=== PATIENT | male | born 2000 | race Caucasian/White ===

== ENCOUNTER 2022-04-09 19:13 | Emergency (ER) | payer BC, MEDICAID, SELFPAY ==
[2022-04-09 19:13] VITALS: BP 129/88; PULSE 100; RESP 18; TEMP 36.7; O2SAT 96
--- NOTE | 2022-04-09 19:20 | ED.NAVMDI ---
HPI - Nausea/Vomiting/Diarrhea General Chief complaint: Nausea/Vomiting/Diarrhea Stated complaint: Vomiting Time Seen by Provider: 04/09/22 19:20 Source: patient Mode of arrival: ambulatory History of Present Illness HPI Narrative: 21-year-old male presents to the ER with a 1 day history of -- nausea with vomiting. he had 1 episode of vomiting today. -- his vomitus had streaks of blood -- One episode of large volume diarrhea -- epigastric pain no fever he ate out yesterday and had seafood MD elicited complaint: nausea, vomiting, diarrhea and abdominal pain Pertinent past history: anorexia Onset (ago): day(s) ( symptoms started yesterday.) Description of vomiting: watery Associated nausea: Yes Associated abdominal pain: Yes Location of pain: epigastric Pain consistency: constant Severity: mild Quality: aching Exacerbating factors: none Relieving factors: none Associated symptoms: denies other symptoms Related Data Allergies Allergy/AdvReac Type Severity Reaction Status Date / Time No Known Allergies Allergy Verified 04/09/22 19:16 Review of Systems Review of Systems: All systems reviewed & are unremarkable except as noted in HPI and below Constitutional: Constitutional: Reports as per HPI and Reports no additional constitutional complaints Eyes: Eyes: Reports as per HPI and Reports no additional eye complaints ENT: Reports system reviewed and no additional complaints, except as documented and Reports as per HPI Cardiovascular: Cardiovascular: Reports as per HPI and Reports no additional cardiovascular complaints Respiratory: Respiratory: Reports as per HPI and Reports no additional respiratory complaints Gastrointestinal: Gastrointestinal: Reports as per HPI, Reports no additional gastrointestinal complaints, Reports diarrhea, Reports nausea and Reports vomiting Genitourinary: Genitourinary: Reports no additional male genitourinary complaints and Reports as per HPI Musculoskeletal: Musculoskeletal: Reports no additional musculoskeletal complaints and Reports as per HPI Integumentary/Breasts: Skin/Breast: Reports system reviewed and no additional complaints, except as docu and Reports as per HPI Neurologic: Reports system reviewed and no additional complaints, except as documented and Reports as per HPI Psychiatric: Psychiatric: Reports no additional psychiatric complaints and Reports as per HPI Endocrine: Endocrine: Reports no additional endocrine complaints and Reports as per HPI Hematologic/Lymphatic: Hematologic/Lymphatic: Reports no additional hematologic/lymphatic complaints and Reports as per HPI Allergic/Immunologic: Allergic/Immunologic: Reports no additional allergic/immunologic complaints and Reports as per HPI Exam Const: General: no acute distress Nutritional Appearance: well nourished Orientation/consciousness: patient oriented x3 Limitations: no limitations HENMT: Head: normal to inspection Ears: external ears normal Face/Nose/Sinus: Normal external nose present Face and sinus: normal facial exam Mouth: Yes Normal oral and palatal mucosa present Throat: posterior oropharynx normal ( Enlarged tonsils. no exudate) Eyes: Conjunctivae: conjunctivae normal Cornea: corneas normal Pupils: Equal, round and reactive pupils present EOM: EOMs intact bilaterally Direct Ophthalmoscopy: no photophobia Neck: Neck: normal visual inspection, no lymphadenopathy, no meningeal signs and lymphadenopathy Chest: Chest palpation & inspection: normal inspection of the chest Resp: Effort & Inspection: normal respiratory effort Auscultation: clear to auscultation bilaterally Cardio: Rate: regular rate Rhythm: regular rhythm GI: GI Palp: Yes Soft to palpation Auscultation: normal bowel sounds : General: Yes no CVA tenderness Back/Spine/Pelvis: Back: no CVA tenderness Skin: General skin exam: normal color Rashes: no rashes Wounds: no wounds Neuro: General: patient oriented x3, moves a
[2022-04-09] MEDS: ONDANSETRON HCL ODT 4 MG TABLET PO (19:30)
[2022-04-09 19:49] LABS: Basophils Absolute Auto 0.02 K/mm3 (0.00-0.10); Basophils Percent Auto 0.2 % (0.0-1.0); Eosinophils Absolute Auto 0.09 K/mm3 (0.02-0.50); Eosinophils Percent Auto 0.8 % (1.0-6.0); Hemoglobin 14.3 g/dL (14.0-18.0); Immature Granulocyte Absolute 0.05 K/mm3 (0.00-0.00); Immature Granulocyte Percent A 0.4 % (0.0-0.0); Lymphocytes Absolute Auto 1.79 K/mm3 (1.10-4.50); Lymphocytes Percent Auto 15.5 % (18.0-42.0); Mean Corpuscular HGB Conc 31.8 g/dL (32.0-36.0); Mean Corpuscular Hemoglobin 27.5 pg (27.0-31.0); Mean Corpuscular Volume 86.5 fL (78.0-102.0); Mean Platelet Volume 9.5 fl (8.7-11.0); Monocytes Percent Auto 4.3 % (2.0-11.0); Neutrophils Absolute Auto 9.1 K/mm3 (1.7-7.2); Neutrophils Percent Auto 78.8 % (50.0-70.0); Platelet Count Result 265 K/mm3 (150-420); Red Cell Distribution Width 12.2 % (11.6-14.4); White Blood Count 11.6 K/mm3 (4.8-10.8)
--- NOTE | 2022-04-09 20:06 | PC.NURSE ---
Pt has an episode of emesis. Reported to ERP. New orders received.
[2022-04-09 20:09] LABS: Alanine Aminotransferase 20 U/L (16-63); Alkaline Phosphatase 90 U/L (65-260); Anion Gap 7 mmol/L (8-16); Aspartate Amino Transferase 24 U/L (15-37); Bilirubin,Total 0.3 mg/dL (0.00-1.00); Blood Urea Nitrogen 22 mg/dL (7-18); Calcium 8.8 mg/dL (8.5-10.1); Carbon Dioxide 30 mmol/L (21-32); Chloride 104 mmol/L (98-108); Estimated CRCL calculation 82 ml/min; Estimated Glomerular Filt Rate > 60; Glucose 87 mg/dL (70-99); Lipase 18 U/L (16-77); Osmolality Calculated 294 mOsm/kg (285-295); Sodium 141 mmol/L (136-145); Total Protein 7.6 g/dL (6.4-8.2); Troponin I 4.4 ng/L (0.00-60.4)
[2022-04-09 20:12] LABS: Lactic Acid Reflex 0.6 mmol/L (0.4-2.0)
--- NOTE | 2022-04-09 20:18 | PC.NURSE ---
RN attempts two IVs that are unsuccessful. Pt states he would rather have the medication a different route and will just drink fluids at this time. ERP updated. New orders received.
[2022-04-09] MEDS: PROCHLORPERAZINE EDISYLATE 10 MG/2 ML VIAL IM (20:35)
[2022-04-09] MEDS: LACTATED RINGERS 1,000 ML 999 ML IV CONT (21:28)
[2022-04-09 22:28] VITALS: BP 124/71; PULSE 89; RESP 18; TEMP 36.6; O2SAT 97
== END 2022-04-09 22:33 | disposition home or self-care (01) ==
PROVIDERS: Emergency Provider Internal Medicine Critical Care Medicine
DX: K52.9 Noninfective gastroenteritis and colitis, unspecified (principal)
CPT/HCPCS: 36415; 80053; 83605; 83690; 84484; 85025; 96360; 96372; 99284; A9270; J0780; J7120

== ENCOUNTER 2022-10-02 19:18 | Emergency (ER) | payer SELFPAY ==
[2022-10-02 19:20] VITALS: BP 112/75; PULSE 89; RESP 18; O2SAT 97
[2022-10-02 19:23] VITALS: BP 112/75; PULSE 96; RESP 16; TEMP 37; O2SAT 97
--- NOTE | 2022-10-02 19:26 | ED.URI ---
HPI - URI/Sore Throat General Chief Complaint: Unspecified Stated Complaint: body ache Time Seen by Provider: 10/02/22 19:26 Source: patient and RN notes reviewed Mode of arrival: ambulatory Limitations: no limitations History of Present Illness MD elicited complaint: fever (102), cough and nasal congestion Onset (ago): day(s) (1) Consistency: constant Severity: moderate Description of mucous: clear Able to tolerate fluids by mouth: Yes Exacerbating factors: nothing Relieving factors: nothing Context: sick contacts Associated symptoms: fever, chills, myalgias, headache, nasal congestion, cough, nausea and diarrhea Treatments prior to arrival: none Related Data Home Medications Medication Instructions Recorded Confirmed No Home Medications 10/02/22 10/02/22 Allergies Allergy/AdvReac Type Severity Reaction Status Date / Time No Known Allergies Allergy Verified 04/09/22 19:16 Review of Systems Review of Systems: All systems reviewed & are unremarkable except as noted in HPI and below PMFSH Past Medical History Medical History (Updated 10/02/22 @ 20:43 by Jeremy Mathis MD) No active medical problems Surgical History Surgical History (Updated 10/02/22 @ 19:39 by Jeremy Mathis MD) No pertinent past surgical history Social History Social History (Updated 10/02/22 @ 19:39 by Jeremy Mathis MD) Tobacco type: e-cigarettes/vaping Exam Const: General: healthy appearing, no acute distress and alert Nutritional Appearance: well nourished Orientation/consciousness: patient oriented x3 Limitations: no limitations HENMT: Head: normal to inspection Ears: external ears normal Face/Nose/Sinus: Normal external nose present Face and sinus: normal facial exam Mouth: Yes moist mucous membranes Throat: abnormal tonsil bilateral hypertrophy 3+ ( Left larger than right) Eyes: Conjunctivae: conjunctivae normal Pupils: Equal, round and reactive pupils present EOM: EOMs intact bilaterally Neck: Neck: normal visual inspection and no lymphadenopathy Resp: Effort & Inspection: normal respiratory effort Auscultation: clear to auscultation bilaterally Cardio: Rate: regular rate Rhythm: regular rhythm GI: GI Palp: Yes Soft to palpation and No Tenderness to palpation present (GI) Auscultation: normal bowel sounds Back/Spine/Pelvis: Cervical Spine: cervical ROM normal Thoracic/Lumbar Spine: thoraco-lumbar ROM normal Skin: General skin exam: normal color Rashes: no rashes Neuro: General: patient oriented x3, moves all extremities, no focal motor deficits and CN's II-XI intact bilaterally Speech: normal speech Gait exam (Neuro): Normal gait present Extrem: General: normal to inspection and no clubbing, cyanosis or edema Psych: Mental Status: mental status grossly normal Affect: normal affect Attitude: cooperative Course Vital Signs Vital signs: Vital Signs Pulse Rate 89 10/02/22 19:20 Respiratory Rate 18 10/02/22 19:20 Blood Pressure 112/75 10/02/22 19:20 Pulse Oximetry 97 10/02/22 19:20 Oxygen Delivery Room Air 10/02/22 19:20 Temperature 37.0 C 10/02/22 19:23 Pulse Rate 82 10/02/22 20:48 Respiratory Rate 16 10/02/22 20:48 Blood Pressure 116/70 10/02/22 20:48 Pulse Oximetry 98 10/02/22 20:48 Oxygen Delivery Room Air 10/02/22 20:48 MDM - URI/Sore Throat Differential Diagnosis Differential diagnosis: Likely upper respiratory infection, viral infection, bronchitis, influenza and other ( COVID) Lab Data Attestation: I reviewed the patient's lab results. Labs: Lab Results 10/02/22 Range/Units 19:29 Influenza A (RT-PCR) Negative (Negative) Influenza B (RT-PCR) Negative (Negative) SARS-CoV-2 RNA (RT-PCR) Positive A (Negative) Discharge Plan Discharge Clinical Impression: COVID-19 Patient Disposition: Home, Self-Care Condition: Stable Instructions: COVID-19 (Coronavirus Disease 2019) (ED), How to Recove
[2022-10-02 19:30] VITALS: BP 114/72; PULSE 88; RESP 18; O2SAT 97
[2022-10-02 20:38] LABS: Influenza A QL RT-PCR Negative (Negative); Influenza B QL RT-PCR Negative (Negative); SARS-CoV-2 RNA PCR Positive (Negative)
[2022-10-02 20:48] VITALS: BP 116/70; PULSE 82; RESP 16; O2SAT 98
== END 2022-10-02 20:48 | disposition home or self-care (01) ==
PROVIDERS: Emergency Provider Emergency Medicine
DX: U07.1 COVID-19 (principal); F17.290 Nicotine dependence, other tobacco product, uncomplicated
CPT/HCPCS: 87636; 99283

== ENCOUNTER 2022-12-28 09:05 | Emergency (ER) | payer OTHER, SELFPAY ==
--- NOTE | ~2022-12-28 | XR_ITS ---
Right Knee Technique: AP, lateral, and oblique views were obtained. Clinical History: Pain Findings: No fracture or dislocation is seen. Osseous alignment is anatomic. Joint spaces are preserv ed without degenerative or erosive change. Soft tissues are unremarkable. No joint effusion is seen. Impression: Unremarkable right knee radiographs. Reviewed, dictated and finalized at [facility]. [employer] Impression: Unremarkable right knee radiographs.
[2022-12-28 09:09] VITALS: BP 131/71; PULSE 90; RESP 18; TEMP 36.7; O2SAT 98
[2022-12-28] MEDS: KETOROLAC (*BKC) 60 MG/2 ML VIAL IM (09:28)
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
[2022-12-28 11:04] VITALS: BP 157/87; PULSE 73; RESP 20; TEMP 36.8; O2SAT 98
== END 2022-12-28 11:09 | disposition home or self-care (01) ==
PROVIDERS: Emergency Provider Family Medicine
DX: S86.811A Strain of other muscle(s) and tendon(s) at lower leg level, right leg, initial encounter (principal); F17.290 Nicotine dependence, other tobacco product, uncomplicated; V89.2XXA Person injured in unspecified motor-vehicle accident, traffic, initial encounter
CPT/HCPCS: 73562; 96372; 99283; J1885

== ENCOUNTER 2023-04-26 09:04 | Emergency (ER) | payer BC, SELFPAY ==
[2023-04-26 09:05] VITALS: BP 118/98; PULSE 106; RESP 20; TEMP 36.3; O2SAT 96
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
[2023-04-26] MEDS: FAMOTIDINE 20 MG TABLET 40 MG PO (09:29)
[2023-04-26] MEDS: IBUPROFEN 600 MG TABLET PO (09:29)
[2023-04-26 09:54] LABS: SARS-CoV-2 RNA PCR Negative (Negative)
[2023-04-26 10:08] LABS: Influenza A QL RT-PCR Negative (Negative); Influenza B QL RT-PCR Negative (Negative); RSV RNA, RT-PCR Positive (Negative)
[2023-04-26 10:27] VITALS: BP 104/68; PULSE 90; RESP 20; TEMP 37.1; O2SAT 94
== END 2023-04-26 10:27 | disposition home or self-care (01) ==
LOC: CHSED 09:35
PROVIDERS: Emergency Provider Student in an Organized Health Care Education/Training Program
DX: J84.115 Respiratory bronchiolitis interstitial lung disease (principal); R11.2 Nausea with vomiting, unspecified; R19.7 Diarrhea, unspecified; F17.290 Nicotine dependence, other tobacco product, uncomplicated; Z20.822 Contact with and (suspected) exposure to COVID-19
CPT/HCPCS: 87637; 99283; A9270

== ENCOUNTER 2024-01-23 15:02 | Emergency (ER) | payer MEDICAID, SELFPAY ==
--- NOTE | ~2024-01-23 | XR_ITS ---
XR chest 1V portable Ordering provider: Aubrey Montoya MD History: 23 years Male with . cough and congestion . Comparison: None. FINDINGS: MEDIASTINUM: The cardiac silhouette is not enlarged. LUNGS: No effusions or pneumothorax. Prominent bronchovascular markings in the lower lobes with minim al infiltrate suggestive of early pneumonia. Follow-up advised. OTHER: No free air under the diaphragm. IMPRESSION: Bilateral basal prominent bronchovascular markings with minimal infiltrate suggestive of early pneumo jimy. Follow-up advised. Reviewed, dictated and finalized at location A. XER IMPRESSION: Bilateral basal prominent bronchovascular markings with minimal infiltrate sugg estive of early pneumonia. Follow-up advised.
[2024-01-23 15:09] VITALS: BP 151/86; PULSE 119; RESP 20; TEMP 36.6; O2SAT 93
[2024-01-23 15:25] VITALS: PULSE 105; RESP 20; O2SAT 94
--- NOTE | 2024-01-23 15:25 | PC.NURSE ---
covid test administered & sent to lab
[2024-01-23] MEDS: IPRATROPIUM 0.5 MG/ALBUTEROL SULFATE 2.5 MG AMPUL.NEB 3 ML INHALATION (15:30)
[2024-01-23 15:33] VITALS: PULSE 103; RESP 20; O2SAT 98
[2024-01-23] MEDS: levoFLOXacin 500 MG TABLET PO (15:47)
--- NOTE | 2024-01-23 15:49 | ED.URI ---
HPI - URI/Sore Throat General Chief Complaint: Upper Respiratory Infection Stated Complaint: upper resp /cough Source: patient Mode of arrival: ambulatory Limitations: no limitations History of Present Illness HPI Narrative: this is a 23-year-old male with no significant past medical history presents with a 4 day history of cough congestion with no fever chills O2 sats 98% there is no chest pain does have some mild shortness of breath with some wheezing, no nausea vomiting no abdominal pain. MD elicited complaint: cough Onset (ago): day(s) Related Data Allergies Allergy/AdvReac Type Severity Reaction Status Date / Time No Known Allergies Allergy Verified 04/09/22 19:16 Review of Systems Review of Systems: All systems reviewed & are unremarkable except as noted in HPI and below PMFSH Past Medical History Medical History No active medical problems Surgical History Surgical History No pertinent past surgical history Social History Social History Tobacco type: e-cigarettes/vaping Exam Const: General: healthy appearing and no acute distress Nutritional Appearance: well nourished Orientation/consciousness: patient oriented x3 Limitations: no limitations Eyes: Conjunctivae: conjunctivae normal Pupils: Equal, round and reactive pupils present Neck: Neck: normal visual inspection and no lymphadenopathy Chest: Chest palpation & inspection: normal inspection of the chest Resp: Effort & Inspection: normal respiratory effort Auscultation: clear to auscultation bilaterally Cardio: Rate: regular rate Rhythm: regular rhythm GI: GI Palp: Yes Soft to palpation Auscultation: normal bowel sounds Neuro: General: patient oriented x3 and moves all extremities Course Course Emergency Course: And chest x-ray shows evidence of early onset pneumonia/ bronchitis, dose of p.o. Levaquin was administered. RSV influenza and COVID performed and reviewed with patient. Vital Signs Vital signs: Vital Signs Temperature 36.6 C 01/23/24 15:09 Pulse Rate 119 H 01/23/24 15:09 Respiratory Rate 20 01/23/24 15:09 Blood Pressure 151/86 H 01/23/24 15:09 Pulse Oximetry 93 01/23/24 15:09 Oxygen Delivery Room Air 01/23/24 15:09 Temperature 36.6 C 01/23/24 15:09 Pulse Rate 103 H 01/23/24 15:33 Respiratory Rate 20 01/23/24 15:33 Blood Pressure 151/86 H 01/23/24 15:09 Pulse Oximetry 98 01/23/24 15:33 Oxygen Delivery Room Air 01/23/24 15:09 Critical Care Time Critical Care Time Critical Care Time: No Discharge Plan Discharge Clinical Impression: Pneumonia Qualifiers: Pneumonia type: due to unspecified organism Laterality: left Lung location: unspecified part of lung Qualified Code(s): J18.9 - Pneumonia, unspecified organism Patient Disposition: Home, Self-Care Condition: Stable Instructions: Antibiotic Form, Bacterial Pneumonia (ED) Additional Instructions: advised patient to take medication as prescribed follow with primary within 1 week for further evaluation treatment. Prescriptions: New levofloxacin 500 mg tablet 500 mg PO DAILY 6 Days Qty: 6 0RF benzonatate 100 mg capsule 100 mg PO TID Qty: 20 0RF Follow-up/Referrals: UNKNOWN,DOCTOR [Primary Care Provider] -
[2024-01-23 16:16] LABS: SARS-CoV-2 RNA PCR Negative (Negative)
[2024-01-23 16:18] LABS: Influenza A QL RT-PCR Negative (Negative); Influenza B QL RT-PCR Negative (Negative); RSV RNA, RT-PCR Negative (Negative)
[2024-01-23 16:21] VITALS: BP 118/73; PULSE 79; RESP 20; O2SAT 93
== END 2024-01-23 16:33 | disposition home or self-care (01) ==
PROVIDERS: Emergency Provider Emergency Medicine
DX: J18.9 Pneumonia, unspecified organism (principal); F17.290 Nicotine dependence, other tobacco product, uncomplicated; Z20.822 Contact with and (suspected) exposure to COVID-19
CPT/HCPCS: 71045; 87637; 94640; 99283; A9270